=== PATIENT | female | born 1985 | race Caucasian/White ===

== ENCOUNTER → 2019-06-01 | Outpatient (CLI) | payer OTHER ==
[~2019-06-01] MED LIST: LEVONOR/ETHI; NAPR-885 PO; ROBA500T PO; VOLT1GEL15 TOP
== END ==
LOC: M LAB 07:24
PROVIDERS: ATTEND Advanced Practice Midwife
DX: R73.02 Impaired glucose tolerance (oral) (principal)

== ENCOUNTER → 2019-06-04 | Outpatient (CLI) | payer OTHER ==
[2019-06-04 13:42] LABS: HEMATOCRIT 34.9 % (36.0-47.0); HEMOGLOBIN 11.4 g/dl (12.0-15.5); MEAN CORPUSCULAR HEMOGLOBIN 31.3 pg (27.0-33.0); MEAN CORPUSCULAR HGB CONC 32.7 g/dl (32.0-36.5); MEAN CORPUSCULAR VOLUME 95.9 fl (80.0-96.0); PLATELET COUNT, AUTOMATED 208 10^3/uL (150-450); RED BLOOD COUNT 3.64 10^6/uL (4.00-5.40); WHITE BLOOD COUNT 10.3 10^3/uL (4.0-10.0)
== END ==
LOC: M PLALAB 11:27
PROVIDERS: ATTEND Advanced Practice Midwife
DX: Z3A.24 24 weeks gestation of pregnancy (principal)

== ENCOUNTER → 2019-06-16 | Outpatient (CLI) | payer OTHER ==
--- NOTE | 2019-06-17 05:12 | REP ---
Clinical: Anatomical evaluation. Comparison: Growth evaluation 04/27/2019 . Findings: Examination demonstrates a single live intrauterine in cephalic presentation. motion is identified by technologist. Placenta is noted anterior and grade zero without evidence for placenta previa or abruption. Amniotic fluid volume is normal. Cervix measures 3.1 cm in length and appears closed. Nuchal cord cannot be excluded. Gestational age by LMP 33 weeks 3 days with FRANCES 08/01/2019 . Gestational age by current measurements 32 weeks 1 day with FRANCES 08/10/2019 . FHR equals 144 beats per minute. Estimated weight 2141 grams ( 41st percentile). Amniotic fluid index: 21.8 cm Impression: Single live advanced gestation in cephalic presentation demonstrating appropriate interval growth. 2. Nuchal cord cannot be excluded. Electronically Signed by Jeffery Holder MD 06/17/2019 05:05 A
== END ==
LOC: M RAD 14:00
PROVIDERS: ATTEND Specialist
DX: O40 Polyhydramnios (principal)

== ENCOUNTER → 2019-07-15 | Outpatient (REF) | payer OTHER | LOC: M SFHCWAGY 11:54 | PROVIDERS: ATTEND Specialist | DX: Z36.85 Encounter for antenatal screening for Streptococcus B (principal) ==

== ENCOUNTER 2019-07-21 13:39 | Inpatient (IN) | payer OTHER ==
[~2019-07-21] VITALS: Ht 152.4 cm; Wt 87.6 kg
[2019-07-21] VITALS (13 sets, daily range): BP systolic 94–133; BP diastolic 54–74
[2019-07-21] MEDS ORDERED: PRENTAB9 PO (14:04)
[2019-07-21] MEDS ORDERED: miSOPROStol 50 MCG 1/2 TAB (S0191) PO SCH (16:30)
[2019-07-21] MEDS ORDERED: OXYTOCIN DRIP 30 UNITS in IV 1 EA IV SCH (16:30)
[2019-07-21] MEDS: LR 1,000 ML IV SCH (16:56)
[2019-07-21 17:10] LABS: HEMATOCRIT 33.1 % (36.0-47.0); HEMOGLOBIN 10.9 g/dl (12.0-15.5); MEAN CORPUSCULAR HEMOGLOBIN 30.7 pg (27.0-33.0); MEAN CORPUSCULAR HGB CONC 32.9 g/dl (32.0-36.5); MEAN CORPUSCULAR VOLUME 93.2 fl (80.0-96.0); PLATELET COUNT, AUTOMATED 191 10^3/uL (150-450); RED BLOOD COUNT 3.55 10^6/uL (4.00-5.40); WHITE BLOOD COUNT 9.7 10^3/uL (4.0-10.0)
[2019-07-21] MEDS: CALCIUM CARBONATE 500 MG CHEW U/D PO PRN (17:16)
--- NOTE | 2019-07-21 22:12 | HPE ---
DATE OF ADMISSION: 07/21/2019 A 33-year-old 5, para 3-0-1-3 female at 37 and 1 by 8-week ultrasound, presents for labor induction due to gestational diabetes complicated by polyhydramnios. She is currently diet controlled. She has occasional contractions. She denies vaginal bleeding. COURSE: The patient initiated care early in . She has a history of prior section. She does desire a trial of labor. Risks of vaginal after () were discussed. OBSTETRICAL HISTORY: 1. 2006: 37 weeks, 7 pound 14 ounce male infant, complicated by polyhydramnios. 2. November 2008: 39 weeks, vaginal delivery, 7 pound 13 ounce female . 3. 2011: section for an 8 pound 10 ounce male infant. MEDICAL HISTORY: None. SURGICAL HISTORY: 1. section. 2. Dilation and curettage (D and C). 3. Tonsillectomy. ALLERGIES: None. SOCIAL HISTORY: The patient lives in [place]. She is . She denies cigarettes, alcohol, or drug use. FAMILY HISTORY: Noncontributory. PHYSICAL EXAMINATION: Blood pressure is 133/71, pulse 90, afebrile. No apparent distress. Head and neck exam: Normal. Lungs: Clear. Heart: Regular rate and rhythm. Abdomen: Nontender, gravid. heart tones: Category 1. Sterile vaginal exam: 1 cm, 50%, -2, posterior, moderate vertex. Extremities: Nontender. LABORATORY: Group B strep negative. Blood type O negative. ASSESSMENT: A 33-year-old 5, para 3 female at 37-1/7 weeks gestation with gestational diabetes and polyhydramnios, presents for labor induction. PLAN: The patient was admitted on 07/21/2019. Risks of induction were discussed. Risks of trial of labor after (TOLAC) including uterine rupture were discussed. Patient was admitted on 07/21/2019. [facility] CENTERCamille
[2019-07-22] VITALS (31 sets, daily range): BP systolic 108–159; BP diastolic 53–91
[2019-07-22] MEDS: LR 1,000 ML IV SCH ×2 (00:09→06:42)
[2019-07-22] MEDS ORDERED: FENTANYL 2MCG/ML ROPIVACAINE 0.2% IN 0.9% NACL 100ML IVBAG As Ordered ONE (01:11)
[2019-07-22] MEDS ORDERED: diphenhydrAMINE INJ 50MG/ML VIAL (J1200) IV PRN (02:45)
[2019-07-22] MEDS ORDERED: REFRIGERATOR IV KEYS XX PRN (02:45)
[2019-07-22] MEDS ORDERED: ePHEDrine SULFATE 25 MG/5 ML(5MG/ML) SYRINGE IV PRN (02:45)
[2019-07-22] MEDS ORDERED: ONDANSETRON 4MG/2ML VIAL (J2405) IV PRN (02:45)
[2019-07-22] MEDS ORDERED: NALOXONE INJ 0.4 MG/1 ML VIAL (J2310) IV PRN (02:45)
[2019-07-22] MEDS ORDERED: LACTATED RINGER'S 1000 ML IV PRN (02:45)
[2019-07-22] MEDS ORDERED: FENTANYL/ROPIVACAINE/NACL BAG 100 ML EPIDURAL SCH (02:45)
[2019-07-22] MEDS ORDERED: EPIDURAL COMMENT XX SCH (02:45)
[2019-07-22] MEDS ORDERED: EPIDURAL/PCA KEYS XX PRN (02:45)
[2019-07-22] MEDS ORDERED: ACETAMINOPHEN 500 MG TAB PO PRN (08:45)
[2019-07-22] MEDS ORDERED: IBUPROFEN 600 MG TAB PO PRN (08:45)
[2019-07-22] MEDS ORDERED: DIBUCAINE 1% OINTMENT 30GM TOP PRN (08:45)
[2019-07-22] MEDS ORDERED: DOCUSATE SODIUM 100 MG CAP PO PRN (08:45)
[2019-07-22] MEDS ORDERED: METHYLERGONOVINE MALEATE 0.2 MG TAB PO PRN (08:45)
[2019-07-22] MEDS ORDERED: ACETAMINOPHEN TAB 650MG DOSE (2X325MG) PO PRN (08:45)
[2019-07-22] MEDS ORDERED: MEASLES,MUMPS,RUBELLA VACCINE INJ (MMR-II) (90707) SC SCH (09:00)
[2019-07-22] MEDS ORDERED: OXYTOCIN DRIP 30 UNITS in IV 1 EA IV SCH (09:00)
[2019-07-22] MEDS ORDERED: RHOGAM 300 MCG (1500 IU) INJ (J2790) IM SCH (09:00)
[2019-07-22] MEDS: IBUPROFEN 800 MG TAB PO PRN ×2 (10:37→18:47)
[2019-07-22] MEDS: PRENATAL VITAMINS CHEWABLE TABLET PO SCH (10:37)
--- NOTE | 2019-07-22 16:22 | DN ---
DATE OF DELIVERY: DELIVERY NOTE: Tami is a 33-year-old, 5, para 4-0-1-4 now, who was admitted to labor and delivery for induction of labor due to polyhydramnios and gestational diabetes. She utilized an epidural for her labor coping. She reached complete dilation at 0746 hours. She pushed to a normal spontaneous vaginal delivery after at 0827 hours in right occiput anterior (MARC) position with restitution to occiput transverse (ROT) position. Shoulders delivered spontaneously and the corpus immediately followed. The female was placed on the abdomen crying and active. Mouth and nares were bulb suctioned. Cord was clamped times two once pulsations ceased and cut by the father of the baby under my direction. Spontaneous expulsion of an intact placenta with three-vessel cord by Schultze mechanism was at 0833 hours. Uterine hemostasis achieved with intravenous (IV) Pitocin rapid infusion and uterine fundal massage. Estimated blood loss 300 mL. Perineum and vagina inspected noted to be intact. female weighed 6 pounds 6 ounces (2890 grams), 8/9, and mom is going to breastfeed her daughter and the family have named her Yaima. At the close of delivery lap counts and instrument counts were correct and verified.
[2019-07-23 06:31] VITALS: BP 118/55
[2019-07-23] MEDS ORDERED: SIMETHICONE 80 MG CHEW TAB PO PRN (07:00)
[2019-07-23] MEDS: CALCIUM CARBONATE 500 MG CHEW U/D PO PRN (09:50)
[2019-07-23] MEDS: PRENATAL VITAMINS CHEWABLE TABLET PO SCH (09:50)
== END 2019-07-23 14:55 | disposition home or self-care (01) | DRG 560 ==
LOC: M LDI 13:39 → M OBS 07-22 11:34
PROVIDERS: ADMIT Specialist; ATTEND Specialist
PROC: 3E033VJ Introduction of Other Hormone into Peripheral Vein, Percutaneous Approach (ICD-10-PCS; 2019-07-21)
PROC: 10E0XZZ Delivery of Products of Conception, External Approach (ICD-10-PCS; principal; 2019-07-22)
DX: O24.429 Gestational diabetes mellitus in childbirth, unspecified control (principal); O40.3XX0 Polyhydramnios, third trimester, not applicable or unspecified; Z37.0 Single live birth; Z3A.37 37 weeks gestation of pregnancy; O34.211 Maternal care for low transverse scar from previous cesarean delivery

== ENCOUNTER → 2019-12-29 | Outpatient (REF) | payer OTHER ==
[~2019-12-29] MED LIST changes: +PRENTAB9 PO
== END ==
LOC: M LAB REF 08:00
PROVIDERS: ATTEND Advanced Practice Midwife
DX: L91.8 Other hypertrophic disorders of the skin (principal)